=== PATIENT | female | born 1945 | race Caucasian/White ===

== ENCOUNTER 2018-10-08 08:33 | Inpatient (IN) | payer MEDICARE ==
[~2018-10-08 08:33] MED LIST: Buffered Lidocaine 1% SYRIN* 1 ML/SYRINGE INTRADERM ONE; Gabapentin CAP(*) 300 MG PO ONE; Lactated Ringers 1000 ML Bag* 1,000 ML IV SCH; Tranexamic Acid 1,000 MG in NS 0.9% 50 ML* (outpatient use) IV SCH
--- OUTSIDE RECORDS SUMMARY | 2018-10-08 08:37 | XMS REPORT | Continuity of Care Document ---
:1945 External Reference #:[id number] Author Name CONCHIS Pascual Address [address] [facility] [place] [address] Care Team Providers Name Role Phone Shola Manning MD Primary Care Physician Unavailable Payers Date Identification Numbers Payment Provider Subscriber Policy Number: [id number] Medicare Blue o [employer] Number: [id number] [address] PayID: [id number] G[place] [address] Expires: 2012 Policy Number: [id number] Medicare Blue o [employer] Number: [id number] [address] PayID: [id number] GREG [place] [address] Problems Active Problems Provider Date Localized, primary osteoarthritis of the Jonn Wilkins M.D. Onset: 2018 pelvic region and thigh Family History Date Family Member(s) Observation Comments General Heart Disease General Hypertension General Stroke General Cancer General Thyroid Disease Social History Type Date Description Comments Sex Unknown Lives With Spouse Occupation Retired ETOH Use Occasionally consumes alcohol Tobacco Use Start: Unknown Patient has never smoked Smoking Status Reviewed: 09/12/18 Patient has never smoked Exercise Type/Frequency Exercises sporadically Allergies, Adverse Reactions, Alerts Description No Known Drug Allergies Medications Active Medications SIG Qnty Indications Ordering Date Provider Lisinopril Zhou, 40mg Tablets JOLLY Chowdary Levothyroxine Sodium Take 1 Tablet Unknown 112mcg Tablets By Mouth Every Day On An Empty Stomach Hydrochlorothiazide Take 1 Tablet Unknown 25mg Tablets By Mouth Every Day Hydrocortisone Apply To Unknown 2.5% Ointment Affected Area(S) On Eyelids And Ears Once Daily For 1 Week In The Evening Amlodipine Besylate Take 2 Tablets Unknown 2.5mg Tablets By Mouth Every Day Famotidine Unknown 10mg Tablets Immunizations CPT Code Status Date Vaccine Lot # [id number] Given 03/05/2010 Influenza Virus 3Yrs & Over [id number] Vital Signs Date Vital Result Comment 09/12/2018 10:22am Height 65 inches 5'5" Weight 190.50 lb Heart Rate 76 /min BP Systolic 142 mmHg BP Diastolic 84 mmHg Respiratory Rate 84 /min Pain Level 2 BMI (Body Mass Index) 31.7 kg/m2 Results Test Date Facility Test Result H/L Range Note Urinalysis Profile 09/27/2018 [facility] Urine Color Straw [address] [place] [address] [phone] Urine Appearance Cloudy Urine Specific [place] 1.009 Low 1.010-1.030 Urine pH 5.0 N 5-9 Urine Urobilinogen Negative Negative Urine Ketones Negative Negative Urine Protein Negative Negative Urine Leukocytes 2+ Abnormal Negative Urine Blood Negative Negative Urine Nitrite Negative Negative Urine Bilirubin Negative Negative Urine Glucose Negative Negative Urine White Blood Cell Trace(0-5/hpf) Absent Urine Red Blood Cell 1+(3-5/hpf) Abnormal Absent Urine Bacteria Absent Absent Urine Squamous Epithelial Cell Present Abnormal Absent Inr/Protime 09/27/2018 [facility] Inr 0.89 N 0.82-1.09 [address] [place] [address] [phone] Laboratory test 09/27/2018 [facility] Partial 33.4 seconds N 26.0-38.[address] [place] [address] PTT [phone] CBC Auto Diff 09/27/2018 [facility] White Blood 6.6 10^3/uL N 3.5-10.[address] [place] [address] [phone] Red Blood Count 4.62 10^6/uL N 3.70-4.87 Hemoglobin 14.0 g/dL N 12.0-16.0 Hematocrit 41 % N 35-47 Mean Corpuscular Volume 90 fL N 80-97 Mean Corpuscular Hemoglobin 30 pg N 27-31 Mean Corpuscular HGB Conc 34 g/dL N 31-36 Red Cell Distribution Width 14 % N 10.5-15 Platelet Count 281 10^3/uL N 150-450 Mean Platelet Volume 8.3 fL N 7.4-10.4 Abs Neutrophils 3.7 10^3/uL N 1.5-7.7 Abs Lymphocytes 2.2 10^3/uL N 1.0-4.8 Abs Monocytes 0.5 10^3/uL N 0-0.8 Abs Eosinophils 0.2 10^3/uL N 0-0.6 Abs Basophils 0.0 10^3/uL N 0-0.2 Abs Nucleated RBC 0.0 10^3/uL Granulocyte % 56.4 % Lymphocyte % 33.7 % Monocyte % 6.8 % Eosinophil % 2.4 % Basophil % 0.7 % Nucleated Red Blood Cells % 0.0 Comp Metabolic Panel 09/27/2018 [facility] Sodium 136 mmol/L N 135-[address] [place] [address] [phone] Potassium 3.8 mmol/L N 3.5-5.0 Chloride 98 mmol/L Low 101-111 Co2 Carbon Dioxide 30 mmol/L N 22-32 Anion Gap 8 mmol/L N 2-11 Glucose 105 mg/dL High 70-100 Blood Urea Nitrogen 17 mg/dL N 6-24 Creatinine 0.74 mg/dL N 0.51-0.95 BUN/Creatinine Ratio 23.0 High 8-20 Calcium 9.9 mg/dL N 8.6-10.3 Total Protein 7.2 g/dL N 6.4-8.9 Albumin 4.5 g/dL N 3.2-5.2 Globulin 2.7 g/dL N 2-4 Albumin/Globulin Ratio 1.7 N 1-3 Total Bilirubin 0.50 mg/dL N 0.2-1.0 Alkaline Phosphatase 80 U/L N 34-104 Alt 13 U/L N 7-52 Ast 18 U/L N 13-39 Egfr Non- 76.5 >60 Egfr 92.6 >60 2 Type & Screen 09/27/2018 [facility] Patient Blood Type AB Positive [address] [place] [address] [phone] Antibody Screen NEGATIVE 1 Standard intensity warfarin therapeutic range: 2.0-3.0 High intensity warfarin therapeutic range: 2.5-3.5 2 Because ethnic data is not always readily available, this report includes an eGFR for both -Americans and non- Americans. The National Kidney Disease Education Program (NKDEP) does not endorse the use of the MDRD equation for patients that are not between the ages of 18 and 70, are , have extremes of body size, muscle mass, or nutritional status, or are non- or non-. According to the National Kidney Foundation, irrespective of diagnosis, the stage of the disease is based on the level of kidney function: Stage Description GFR(mL/min/1.73 m(2)) 1 Kidney damage with normal or decreased GFR 90 2 Kidney damage with mild decrease in GFR 60-89 3 Moderate decrease in GFR 30-59 4 Severe decrease in GFR 15-29 5 Kidney failure <15 (or dialysis) Procedures Date Code Description Status 03/06/2013 94378 Rad Exam; Hip Unilat Completed 03/06/2013 72983 Rad Exam; Pelvis Completed 03/29/2012 56677 Rad Exam; Hip Unilat Completed 03/29/2012 16497 Rad Exam; Pelvis Completed 02/27/2012 66859 THR Total Hip Replacement Completed 02/27/2012 29231 THR Total Hip Replacement Completed 01/26/2012 24068 Rad Exam; Hip Unilat Completed 01/26/2012 73166 Rad Exam; Pelvis Completed Encounters Type Date Location Provider Dx Diagnosis Office Visit 09/22/2017 [facility] Hayes Felder MD L23.9 Allergic contact 10:10a dermatitis, unspecified cause L82.0 Inflamed seborrheic keratosis L82.1 Other seborrheic keratosis Office Visit 09/15/2017 [facility] Hayes Felder L23.9 Allergic contact 11:00a dermatitis, unspecified cause Office Visit 03/06/2013 [facility] Kyle Alvarez 715.95 Osteoarthrosis 9:45a [facility]-C Localized Pelvic & Thigh Office Visit 09/12/2012 [facility] Kyle Alvarez 715.95 Osteoarthrosis 10:00a [facility] R[facility]-C Localized Pelvic & Thigh Office Visit 01/26/2012 [facility] Jonn 715.95 Osteoarthrosis 8:00a [facility] Unspec Genlpa[facility] Or Alb[place] Localized Pelvic & Thigh Plan of Treatment Future Appointment(s):10/08/2018 10:00 am - CONCHIS Valle at [facility]10/08/2018 10:00 am - Jonn Wilkins M.D. at [facility]11/07/2018 11:00 am - Jonn Wilkins M.D. at [facility]09/12/2018 - Jonn Wilkins M.D.M16.12 Unilateral primary osteoarthritis, left hipFollow up:4 weeks after surgery
--- OUTSIDE RECORDS SUMMARY | 2018-10-08 08:38 | XMS REPORT | Continuity of Care Document ---
:1945 External Reference #:[id number] Author Name Melvi Shaikh Care Team Providers Name Role Phone Shola Manning MD Primary Care Physician Unavailable Payers Date Identification Numbers Payment Provider Subscriber Policy Number: [id number] Medicare Blue o Jenae [employer] Number: [id number] [address] PayID: [id number] [place] [address] Expires: 2012 Policy Number: [id number] Medicare Blue Ppo Jenae [employer]he[employer] Number: [id number] [address] PayID: [id number] [place] [address] Problems Active Problems Provider Date Localized, primary [...] Medications SIG Qnty Indications Ordering Date Provider Lisinoprtammy Epperson, 40mg Tablets JOLLY Chowdary Levothyroxine Sodium Take [...] CPT Code Status Date Vaccine Lot # [id number] Given 03/05/2010 Influenza Virus 3Yrs & Over [id number] Vital Signs Date Vital Result Comment 09/12/2018 10:22am Height 65 inches 5'5" Weight 190.50 lb Heart Rate 76 /min BP Systolic 142 mmHg BP Diastolic 84 mmHg Respiratory Rate 84 /min Pain Level 2 BMI (Body Mass Index) 31.7 kg/m2 Procedures Date Code Description Status 03/06/2013 00397 Rad Exam; Hip Unilat Completed 03/06/2013 49732 Rad Exam; Pelvis Completed 03/29/2012 54648 Rad Exam; Hip Unilat Completed 03/29/2012 42152 Rad Exam; Pelvis Completed 02/27/2012 49943 THR Total Hip Replacement Completed 02/27/2012 77555 THR Total Hip Replacement Completed 01/26/2012 65179 Rad Exam; Hip Unilat Completed 01/26/2012 01022 Rad Exam; Pelvis Completed Encounters Type Date Location Provider Dx Diagnosis Office Visit 09/22/2017 [facility] Hayes Felder MD L23.9 Allergic contact 10:10a dermatitis, unspecified cause L82.0 Inflamed seborrheic keratosis L82.1 Other seborrheic keratosis Office Visit 09/15/2017 [facility] Hayes Felder L23.9 Allergic contact 11:00a dermatitis, unspecified cause Office Visit 03/06/2013 [facility] Kyle Neff.95 Osteoarthrosis 9:45a [facility] HOGANC Localized Pelvic & Thigh Office Visit 09/12/2012 [facility] Kyle Neff.95 Osteoarthrosis 10:00a [facility] WOLFF-Farrah Localized Pelvic & Thigh Office Visit 01/26/2012 Orthopedic Jonn Nur Osteoarthrosis 8:00a [facility] [place] Localized Pelvic & Thigh Plan of Treatment Future Appointment(s):11/07/2018 11:00 am - Jonn Wilkins M.D. at [facility]/12/2018 - Jonn Wilkins M.D.M16.12 Unilateral primary osteoarthritis, left hipFollow up:4 weeks after surgery
--- OUTSIDE RECORDS SUMMARY | 2018-10-08 08:38 | XMS REPORT | Continuity of Care Document ---
:1945 External Reference #:[id number] Author Name Heather Mcdowell PA-C Address [address] [place] [address] [place] [address] Care Team Providers Name Role Phone Shola Manning MD Care Team Information Auto Damage Appraiser Unavailable Shola Manning MD Primary Care Physician Unavailable Payers Date Identification Numbers Payment Provider Subscriber Policy Number: [id number] Medicare Blue Ppo Jenae Cleaning PayID: [id number] [place] [address] Expires: 2010 Policy Number: [id number] [facility] TAPAN Rawls [place] PayID: [id number] [address] [address] [place] [address] Advance Directives Description No Information Available Problems Active Problems Provider Date History of polyp of colon Heather Mcdowell PA-C Onset: 09/05/2018 Esophageal dysphagia Heather Mcdowell PA-C Onset: 09/05/2018 Gastroesophageal reflux disease Heather Mcdowell PA-C Onset: 09/05/2018 Essential hypertension Heather Mcdowell PA-C Onset: 09/12/2018 Family History Description No Information Available Social History Type Date Description Comments Sex Unknown Tobacco Use Start: Unknown Patient has never smoked Smoking Status Reviewed: 09/05/18 Patient has never smoked Allergies, Adverse Reactions, Alerts Description No Known Drug Allergies Medications Active Medications SIG Qnty Indications Ordering Date Provider Peg 3350/Electrolytes use as directed 4000ml Z86.010 Shola Bethea, 2018 240gm DO Solution Rec Lisinopril Epi Epperson, 40mg Tablets SPANISH INTERPRETER/TRANSLATOR Levothyroxine Sodium Take 1 Tablet Unknown 112mcg By Mouth Every Tablets Day On An Empty Stomach Hydrochlorothiazide Take 1 Tablet Unknown 25mg Tablets By Mouth Every Day Amlodipine Besylate Take 2 Tablets Unknown 2.5mg Tablets By Mouth Every Day Famotidine 1 by mouth Unknown 10mg Tablets every day Lutein Unknown 20mg Capsules Ibuprofen as needed Unknown 200mg Tablets Medications Administered in Office Medication SIG Qnty Indications Ordering Provider Date Influenza Unknown 03/06/2015 Injection Immunizations CPT Code Status Date Vaccine Lot # [id number] Given 03/17/2016 Influenza Virus Vaccine, Split Virus, Im U-Td Given 05/01/2015 Td(Adult),Unspecified 87415 Given 06/18/2010 Pneumovax 45170 Given 11/20/2006 Zoster Shingles Vaccine For Subcutaneous Injection 45051 Given 11/06/2006 Tetanus, Diphtheria Toxoids/Acellular Pertussis Vaccine 7 Or > Vital Signs Date Vital Result Comment 09/05/2018 12:54pm Height 65 inches 5'5" Weight 185.00 lb BP Systolic 159 mmHg BP Diastolic 82 mmHg Heart Rate 70 /min BMI (Body Mass Index) 30.8 kg/m2 Results Description No Information Available Procedures Date Code Description Status 02/07/2018 01066 Influenza Virus Vaccine, Quadrivalent (Cciiv4), Derived Completed From Cell 02/10/2017 10130 Influenza Virus Vaccine, Quadrivalent (Cciiv4), Derived Completed From Cell 12/25/2006 01205 Colonscopy+Biopsy Completed Encounters Description No Information Available Plan of Treatment Future Appointment(s):10/12/2018 12:30 pm - Shola [facility]hea DO at [facility]09/05/2018 - BHARGAVI Romeo-CK21.9 Gastro-esophageal reflux disease without hnwjkfbcvacV78.14 Dysphagia, pharyngoesophageal lzqlpU15.010 Personal history of colonic polypsNew Medication:Peg 3350/ Electrolytes 240 gm - use as directed
[2018-10-08] MEDS ORDERED: Gabapentin CAP(*) 100 MG ONE (08:59)
[2018-10-08] MEDS ORDERED: Buffered Lidocaine 1% SYRIN* 1 ML/SYRINGE INTRADERM ONE (09:00)
[2018-10-08] MEDS ORDERED: ceFAZolin 2 GM PREMIX in ORs 2 GM/50 ML BAG ONE (09:00)
[2018-10-08] MEDS ORDERED: fentaNYL* 50 MCG/ML 2 ML VIAL (100 MCG VIAL) ONE (09:27)
[2018-10-08] MEDS ORDERED: Midazolam* 1 MG/ML 2 ML VIAL (2 MG) ONE ×3 (09:27→10:55)
[2018-10-08] MEDS ORDERED: Ropivacaine (OR use only) 2 MG/ML 10 ML ONE (10:07)
[2018-10-08] MEDS ORDERED: ROPIVACAINE 5 MG/ML 30 ML BTL (0.5%) ONE (10:07)
[2018-10-08] MEDS ORDERED: Bupivacaine 0.5% SDV PF* 30ML VIAL ONE (10:32)
[2018-10-08] MEDS ORDERED: Dexamethasone IV* 4 MG/ML 1 ML (4 MG) ONE (11:01)
[2018-10-08] MEDS ORDERED: Propofol* 10 MG/ML 20 ML BTL ONE ×2 (11:01→12:19)
[2018-10-08] MEDS ORDERED: Acetaminophen IV 1GM/100ML * 100 ML ONE (11:02)
[2018-10-08] MEDS ORDERED: Lidocaine 2% PF * 5 ML VIAL ONE (11:02)
[2018-10-08] MEDS ORDERED: Ketorolac INJ* 30 MG/ML 1 ML VIAL ONE (11:15)
[2018-10-08] MEDS ORDERED: DiMENhydriNATE IV* 50 MG/ML VIAL ONE (11:15)
[2018-10-08] MEDS ORDERED: Ondansetron INJ* 2 MG/ML VIAL ONE (11:15)
[2018-10-08] MEDS ORDERED: Hetastarch 6% in NS* 500 ML IV ONE (11:42)
[2018-10-08] MEDS ORDERED: Phenylephrine 40 MCG/ML SYRINGE ONE (11:51)
[2018-10-08] MEDS ORDERED: fentaNYL* 50 MCG/ML 2 ML VIAL (100 MCG VIAL) IV PRN (12:09)
[2018-10-08] MEDS ORDERED: HYDROcodone/ACETAMIN 5-325 MG* 1 TAB PO PRN (12:09)
[2018-10-08] MEDS ORDERED: PROCHLORPERAZINE INJ 5 MG/ML 2 ML VIAL IV PRN (12:09)
[2018-10-08] MEDS ORDERED: Naloxone* 0.4 MG/ML 1 ML VIAL IV PRN (12:09)
[2018-10-08] MEDS ORDERED: diPHENhydraMINE IV* 50 MG/ML 1 ml VIAL (BENADRYL) IV PRN ×2 (12:09→13:02)
[2018-10-08] MEDS ORDERED: DiMENhydriNATE IV* 50 MG/ML VIAL IV PUSH PRN (12:09)
[2018-10-08] MEDS ORDERED: Ondansetron INJ* 2 MG/ML VIAL IV PRN ×2 (12:09→13:02)
[2018-10-08] MEDS ORDERED: Magnesium Hydroxide LIQ* 30 ML UDC PO PRN (13:02)
[2018-10-08] MEDS ORDERED: traMADol TAB* 50 MG PO PRN (13:02)
[2018-10-08] MEDS ORDERED: Cyclobenzaprine TAB* 10 MG PO PRN (13:02)
[2018-10-08] MEDS ORDERED: Bisacodyl SUPP* 10 MG SUPP PR PRN (13:02)
[2018-10-08] MEDS ORDERED: Polyethylene Glycol 3350* 17 GM PACKET PO PRN (13:02)
[2018-10-08] MEDS ORDERED: oxyCODONE TAB* 5 MG TAB PO PRN (13:02)
[2018-10-08] MEDS ORDERED: Morphine 4 MG/ML VIAL (1 ml) 4 MG/ML VIAL IV PRN (13:02)
[2018-10-08] MEDS ORDERED: diPHENhydraMINE PO* 25 MG PO PRN (13:02)
[2018-10-08] MEDS ORDERED: CONJUGATED ESTROGENS VAGINAL PRN (13:10)
[2018-10-08] MEDS ORDERED: Hydrocortisone 1% CREAM* 30 GM TUBE TOPICAL PRN (13:10)
--- NOTE | 2018-10-08 14:12 | OP ---
DATE OF OPERATION: 10/08/18 - ROOM #[id number] DATE OF : 41 SURGEON: Jonn Wilkins MD GRADUATE RECRUITER: Lucia Bernabe RPA ANESTHESIA: Regional/spinal/sedation. PRE-OP DIAGNOSIS: Left hip osteoarthritis. POST-OP DIAGNOSES: 1. Left hip osteoarthritis. 2. Abductor tear, left hip. OPERATIVE PROCEDURE: 1. Left total hip arthroplasty. 2. Abductor repair. ESTIMATED BLOOD LOSS: Less than 75 cc. COMPLICATIONS: None. HARDWARE: Lulú #11 M/L taper, 52 mm continuum cup, 10 degree elevated liner, +3.5 mm 36 mm head. SUMMARY: Mrs. Cleaning is a 73-year-old female who had undergone a right total hip arthroplasty in 2011. She had done well with this and had presented to the office last month complaining of left hip pain. She had very specific osteoarthritic changes and I discussed with her that a total hip arthroplasty should work well to decrease her pain and improve her function. Risks of surgery such as infection, scar formation, stiffness, DVT, pulmonary embolism, and hardware failure were some of the risks discussed. She had been declared medically optimized and wished to proceed. DESCRIPTION OF PROCEDURE: The patient was brought to the OR after a block had been placed in the holding area. Spinal anesthesia was then introduced. Cowan catheter was placed. She was then rolled into the right lateral decubitus position and an axillary roll was placed. She reported that she was quite comfortable. Left hip area was prepped and then draped. Incision was made, centered over the greater trochanter, was extended proximally and distally for about 6 cm. Incision was carried down through the skin and subcutaneous fat. Small bleeders encountered were ligated using electrocautery. Fascia was exposed and sharply incised. The bone of the greater trochanter was immediately evident. It could be seen how she had what was called a rotator cuff tear of the hip where the abductors were peeled away from the sides there. With internal rotation, the piriformis could easily be palpated and the piriformis, short external rotators, and capsule were taken down together from the posterior aspect of the greater trochanter. T-capsulotomy was made and hip was then easily dislocated. Cutting guide was placed and the femoral neck was marked and then the femoral head was resected. Big C retractor was placed anteriorly and broad Hohmann inferiorly and nice exposure of the acetabulum was obtained. Broad redundant labrum was present and this was sharply taken down using a Crowley blade. Beginning with 44 reamer, she was first deepened a little bit and then progressively expanded. At 50, I had a nice side to side fit, but I still had little bit of sclerotic bone and when I leaned into it with a 51, I ended up taking a little bit extra bone and medializing a little more than what I had done on the opposite side. A 52 mm cup was called for and impacted into place. Posteriorly, I only could place 2 cm screws but a good bite was obtained with both. Trial liner was placed and attention was returned to the proximal femur. Box osteotome was used to open the femoral canal and the canal finder was easily passed. Beginning with #4 broach, she was progressively broached to a #11, which is what she had on the opposite side. An 11 sat nicely and with a standard neck and a 0 head, she was easily located and I felt that she was just a little bit short. She was trialed with +3.5 and her leg length appeared perfect. She also had good stability as I could hyperflex her, but with the hip at 90 degrees and starting to internally rotate , she started to lever at 30 degrees and will be out at 45 degrees. Similarly in full adduction, she would lever out fairly quickly. This was not related to levering on the neck, as I could have my finger between the anterior acetabulum in the neck and I was not getting pinched. Elevated liner was called for in extension, she was nicely stable and not tight in extension. Trial instrumentation was removed and hip was copiously pulse lavaged. Elevated liner was impacted into place. An 11 M/L taper was impacted into place and she was again trialed with the +3.5 head. She had much better stability where she could be hyperflexed without any troubles, internally rotated, only started a lever at 60 degrees and full adduction would only start the lever at about 45 degrees but still was in at 60 degrees. +3.5 head was impacted into place and the hip was again relocated. Hip was copiously pulse lavaged. Piriformis capsule and short external rotators were repaired together to the posterior aspect of the greater trochanter. #4 broach was then used as a rasp to roughen up the greater trochanter to allow for a repair of her abductor mechanism. Beginning with the Ethibond sutures, she was brought together and a nice repair of the abductor mechanism was obtained. Fascia was repaired using interrupted # 1 Vicryl sutures. Hip was again pulse lavaged and subcutaneous tissues were reapproximated in 2 layers using 2-0 Vicryl sutures. Skin was closed using georgina. Sterile dressing and abduction pillow were applied in the OR. The patient was then rolled on to the hospital bed and was stable on transfer to the recovery room. [id number]/[facility] #: [id number] SID
[2018-10-08] MEDS: Lactated Ringers 1000 ML Bag* 1,000 ML IV SCH (15:54)
[2018-10-08] MEDS ORDERED: Conjugated Estrogens VAG CM* 42.5 gm TUBE VAGINAL PRN (16:44)
[2018-10-08] MEDS ORDERED: Warfarin TAB(*) 6 MG PO ONE (17:00)
[2018-10-08] MEDS ORDERED: Lisinopril TAB* 10 MG PO SCH (18:00)
[2018-10-08] MEDS: Acetaminophen TAB* 325 MG PO SCH (18:27)
[2018-10-08] MEDS: ceFAZolin 1 GM ADVAN(*) 1 GM in NS 0.9% 50 ML* 50 ML IVPB SCH (18:28)
[2018-10-08] MEDS: Magnesium Hydroxide LIQ* 30 ML UDC PO SCH (22:14)
[2018-10-08] MEDS: Docusate CAP* 100 MG PO SCH (22:14)
[2018-10-09] MEDS: Lactated Ringers 1000 ML Bag* 1,000 ML IV SCH (02:03)
[2018-10-09] MEDS: ceFAZolin 1 GM ADVAN(*) 1 GM in NS 0.9% 50 ML* 50 ML IVPB SCH ×2 (03:18→11:33)
[2018-10-09] MEDS: Acetaminophen TAB* 325 MG PO SCH ×3 (03:18→16:56)
[2018-10-09 05:00] LABS: Hematocrit 30 % (35-47); Hemoglobin 10.2 g/dL (12.0-16.0); Mean Platelet Volume 7.4 fL (7.4-10.4); Platelet Count 215 10^3/uL (150-450)
[2018-10-09 05:05] LABS: INR 1.15 (0.82-1.09)
[2018-10-09 05:15] LABS: BUN/Creatinine Ratio 19.7 (8-20); Calcium 8.2 mg/dL (8.6-10.3); EGFR African American 105.6 (>60); EGFR Non-African American 87.3 (>60); Potassium 3.4 mmol/L (3.5-5.0)
[2018-10-09] MEDS ORDERED: Levothyroxine TAB* 112 MCG TAB PO SCH (06:00)
--- NOTE | 2018-10-09 08:48 | PN ---
Progress Note - Progress Note Date of Service: 10/09/18 SOAP: Subjective: []Pt seen at bedside POD 1 sp left total hip arthroplasty. Denies CP, SOB, dizziness, nausea. Objective: []General: appears well, NAD LLE: Left hip dressing CDI, thigh soft, DF/PF intact, DP2+, sensation intact to light touch distally Calves supple and nontender without erythema, edema or palpable cords Assessment: []POD 1 sp LTH Plan: []WBAT Posterior hip precautions No active or resisted abduction heparin bridge to coumadin. coumadin 8 mg today low sodium and potassium - hold hctz and lisinopril today. resume normal diet, potassium 20 mg bid If goals met with PT and feeling well this afternoon possible DC today Vital Signs Temp 98.2 F 10/09/18 07:47 Pulse 67 10/09/18 07:47 Resp 12 10/09/18 07:47 BP 104/49 10/09/18 07:47 Pulse Ox 96 10/09/18 07:47 Intake & Output 10/08/18 10/09/18 10/09/18 18:59 06:59 18:59 Intake Total 1900 1580 Output Total 2250 1095 Balance -350 485 Weight 185 lb 9.6 oz Intake: IV Fluids 1600 1010 LR 1600 1010 Oral 300 570 Output: Cowan 2250 1095 Other: # Bowel Movements 0 Laboratory Last Values Hgb 10.2 g/dL (12.0-16.0) L 10/09/18 04:40 Hct 30 % (35-47) L 10/09/18 04:40 Plt Count 215 10^3/uL (150-450) 10/09/18 04:40 MPV 7.4 fL (7.4-10.4) 10/09/18 04:40 INR (Anticoag Therapy) 1.15 (0.82-1.09) H 10/09/18 04:40 Sodium 133 mmol/L (135-145) L 10/09/18 04:40 Potassium 3.4 mmol/L (3.5-5.0) L 10/09/18 04:40 Chloride 100 mmol/L (101-111) L 10/09/18 04:40 Carbon Dioxide 28 mmol/L (22-32) 10/09/18 04:40 Anion Gap 5 mmol/L (2-11) 10/09/18 04:40 BUN 13 mg/dL (6-24) 10/09/18 04:40 Creatinine 0.66 mg/dL (0.51-0.95) 10/09/18 04:40 Est GFR ( Amer) 105.6 (>60) 10/09/18 04:40 Est GFR (Non-Af Amer) 87.3 (>60) 10/09/18 04:40 BUN/Creatinine Ratio 19.7 (8-20) 10/09/18 04:40 Glucose 135 mg/dL (70-100) H 10/09/18 04:40 Calcium 8.2 mg/dL (8.6-10.3) L 10/09/18 04:40
--- NOTE | 2018-10-09 08:48 | PN ---
Subjective - Subjective Reason for Note: Consultation Note History: Internal medicine consultation: 1 day post left total hip arthroplasty Jenae Cleaning tolerated the procedure well and was able to walk yesterday. Her Cowan has been removed and she has yet to void. She has had no complications thus far. She denies fevers, chills. She has no chest pain, shortness of breath or palpitations. She has had no cough/sputum. Her appetite is good and she is passing flatus. Her pain control at rest is good. Active Problems: Active Problems History of total left hip arthroplasty (Acute) Z96.642 Hypokalemia (Acute) E87.6 Essential hypertension (Chronic) I10 GERD (gastroesophageal reflux disease) (Chronic) K21.9 History of esophageal stricture (Chronic) Z87.19 Obesity (BMI 30.0-34.9) (Chronic) E66.9 Primary hypothyroidism (Chronic) E03.9 Current Medications: Current Medications Acetaminophen (Tylenol Tab*) 975 mg PO Q8H [facility] Last Admin: 10/09/18 03:18 Dose: 975 mg Amlodipine Besylate (Norvasc Tab*) 5 mg PO QAM [facility] Bisacodyl (Dulcolax Supp*) 10 mg HI DAILY PRN PRN Reason: constipation Cholecalciferol (Vitamin D Tab*) 2,000 units PO QAM [facility] Cyclobenzaprine HCl (Flexeril Tab*) 10 mg PO TID PRN PRN Reason: SPASMS Diphenhydramine HCl (Benadryl Iv*) 25 mg IV Q6H PRN PRN Reason: itching Diphenhydramine HCl (Benadryl Po*) 25 mg PO Q6H PRN PRN Reason: INSOMNIA Docusate Sodium (Colace Cap*) 100 mg PO BID [facility] Last Admin: 10/08/18 22:14 Dose: Not Given Estrogens Conjugated (Premarin Vag Cream*) 1 applic VAGINAL ONCE PRN PRN Reason: IF NEEDED Stop: 10/09/18 13:09 Famotidine (Pepcid Tab*) 10 mg PO QAM [facility] Heparin Sodium (Porcine) (Heparin Vial(*)) 5,000 units SUBCUT Q8HR [facility] Hydrochlorothiazide (Hydrodiuril Tab*) 25 mg PO QAM [facility] Hydrocortisone (Hytone Cream 1%*) 1 applic TOPICAL ONCE PRN PRN Reason: PSORIASIS Cefazolin Sodium 1 gm/ Sodium (Chloride) 50 mls @ 200 mls/hr IVPB Q8H [facility] Stop: 10/09/18 11:14 Last Admin: 10/09/18 03:18 Dose: 200 mls/hr Lactated Ringer's (Lactated Ringers 1000 Ml Bag*) 1,000 mls @ 100 mls/hr IV PER RATE [facility] Last Admin: 10/09/18 02:03 Dose: 100 mls/hr Lactulose (Lactulose*) 30 ml PO Q6H PRN PRN Reason: constipation Levothyroxine Sodium (Synthroid Tab*) 112 mcg PO QAM@0600 [facility] Last Admin: 10/09/18 05:37 Dose: 112 mcg Lisinopril (Prinivil Tab*) 40 mg PO QPM [facility] Last Admin: 10/08/18 18:28 Dose: 40 mg Magnesium Hydroxide (Milk Of Magnesia Liq*) 30 ml PO BID [facility] Last Admin: 10/08/18 22:14 Dose: Not Given Magnesium Hydroxide (Milk Of Magnesia Liq*) 30 ml PO Q6H PRN PRN Reason: constipation Morphine Sulfate (Morphine 4 Mg/Ml Vial (1 Ml)) 2 mg IV Q2H PRN PRN Reason: PAIN Ondansetron HCl (Zofran Inj*) 4 mg IV Q6H PRN PRN Reason: nausea Oxycodone HCl (Roxycodone Tab*) 10 mg PO Q4H PRN PRN Reason: breakthru pain Polyethylene Glycol/Electrolytes (Miralax*) 17 gm PO DAILY PRN PRN Reason: Constipation Tramadol HCl (Ultram*) 50 mg PO Q6H PRN PRN Reason: PAIN Last Admin: 10/09/18 05:46 Dose: 50 mg Home Medications: Home Medications Medication Instructions Recorded Confirmed Type Cholecalciferol (Vitamin D3) 2,000 unit PO QAM 02/22/12 10/08/18 History [Vitamin D-3] Conjugated Estrogens VAG CM* 1 applic VAGINAL ONCE PRN 02/22/12 10/08/18 History [Premarin VAG CREAM*] Hydrochlorothiazide TAB* 25 mg PO QAM 02/22/12 10/08/18 History [Hydrodiuril TAB*] Ibuprofen TAB* [Advil TAB*] 1 - 2 tab PO BID 02/22/12 10/08/18 History Levothyroxine TAB* [Synthroid TAB*] 112 mcg PO QAM 02/22/12 10/08/18 History Lisinopril TAB* [Prinivil TAB*] 40 mg PO QPM 02/22/12 10/08/18 History [place]-3 Fatty Acids [[place]-3] 300 mg PO QAM 02/22/12 10/08/18 History Lutein 20 mg PO QAM 07/16/15 10/08/18 History Famotidine 10 mg PO QAM 09/27/18 10/08/18 History Glycerin/Propylene Glycol [Soothe 1 drop BOTH EYES TID PRN 09/27/18 10/08/18 History Lubricant Eye Drops] Hydrocortisone 2.5% CREAM(NF) 1 applic TOPICAL ONCE PRN 09/27/18 10/08/18 History amLODIPine TAB* [Norvasc 5 mg TAB*] 5 mg PO QAM 09/27/18 10/08/18 History Allergies: Allergies Allergy/AdvReac Type Severity Reaction Status Date / Time No Known Allergies Allergy Verified 10/08/18 09:10 Objective - Vital Signs Vital Signs: Vital Signs 10/08/18 10/08/18 10/08/18 09:10 10:08 10:11 Temperature 96.8 F Pulse Rate 68 68 68 Respiratory 16 Rate Blood Pressure 152/79 142/74 (mmHg) O2 Sat by Pulse 96 96 97 Oximetry 10/08/18 10/08/18 10/08/18 10:15 10:20 10:25 Temperature Pulse Rate 70 67 67 Respiratory Rate Blood Pressure 140/74 128/61 127/66 (mmHg) O2 Sat by Pulse 99 95 97 Oximetry 10/08/18 10/08/18 10/08/18 13:03 13:04 13:05 Temperature 96.8 F Pulse Rate 80 79 Respiratory Rate Blood Pressure 108/60 (mmHg) O2 Sat by Pulse 94 93 Oximetry 10/08/18 10/08/18 10/08/18 13:06 13:10 13:15 Temperature Pulse Rate 80 76 73 Respiratory 19 14 Rate Blood Pressure 109/65 110/58 113/62 (mmHg) O2 Sat by Pulse 93 94 94 Oximetry 10/08/18 10/08/18 10/08/18 13:20 13:25 13:30 Temperature Pulse Rate 73 71 74 Respiratory 16 12 15 Rate Blood Pressure 117/61 114/68 120/63 (mmHg) O2 Sat by Pulse 95 96 97 Oximetry 10/08/18 10/08/18 10/08/18 13:35 13:40 13:45 Temperature Pulse Rate 73 69 70 Respiratory 14 12 15 Rate Blood Pressure 118/61 119/63 124/65 (mmHg) O2 Sat by Pulse 96 97 95 Oximetry 10/08/18 10/08/18 10/08/18 13:50 13:55 14:00 Temperature Pulse Rate 72 72 68 Respiratory 13 16 13 Rate Blood Pressure 119/63 116/65 121/62 (mmHg) O2 Sat by Pulse 97 98 97 Oximetry 10/08/18 10/08/18 10/08/18 15:07 15:08 16:21 Temperature 97.7 F 97.5 F Pulse Rate 75 87 Respiratory 18 16 16 Rate Blood Pressure 136/54 122/55 (mmHg) O2 Sat by Pulse 100 94 Oximetry 10/08/18 10/08/18 10/08/18 17:00 19:02 21:19 Temperature 97.6 F 98.2 F Pulse Rate 85 96 89 Respiratory 18 18 16 Rate Blood Pressure 115/54 123/59 111/53 (mmHg) O2 Sat by Pulse 93 97 94 Oximetry 10/08/18 10/08/18 10/09/18 22:15 23:19 03:21 Temperature 98.2 F 97.9 F Pulse Rate 82 71 Respiratory 16 16 16 Rate Blood Pressure 114/60 121/59 (mmHg) O2 Sat by Pulse 94 94 Oximetry 10/09/18 10/09/18 05:46 07:47 Temperature 98.2 F Pulse Rate 67 Respiratory 16 12 Rate Blood Pressure 104/49 (mmHg) O2 Sat by Pulse 96 Oximetry - Intake and Output Intake and Output: Intake & Output 10/06/18 10/07/18 10/08/18 10/09/18 11:59 11:59 11:59 11:59 Intake Total 3480 Output Total 3345 Balance 135 Weight 185 lb 9.6 oz Intake: IV Fluids 2610 LR 2610 Oral 870 Output: Cow[place] 3345 Other: # Bowel Movements 0 ADLs: Meal Record Start: 10/08/18 15: 07 Freq: Status: Active Protocol: Created 10/08/18 15:07 [id number] (Rec: 10/08/18 15:07 [id number]) Document 10/08/18 18:33 [id number] (Rec: 10/08/18 18:33 [id number]) Intake and Output Start: 10/08/18 13: 02 Freq: 06,14,2200 Status: Complete Protocol: Created 10/08/18 13:10 [id number] (Rec: 10/08/18 13:10 BKG [id number]) Intake and Output Start: 10/08/18 15: 07 Freq: DAILY@0600,1400,2200 Status: Active Protocol: Created 10/08/18 15:07 [id number] (Rec: 10/08/18 15:07 [id number]) Document 10/08/18 17:13 [id number] (Rec: 10/08/18 17:14 [id number]) Document 10/08/18 21:29 [id number] (Rec: 10/08/18 21:30 [id number] [id number]) Document 10/08/18 22:14 [id number] (Rec: 10/08/18 22:16 [id number] [id number]) Document 10/09/18 05:17 [id number] (Rec: 10/09/18 05:18 [id number]) - Physical Exam General: No Cyanosis, No Anemia, No Jaundice, No Clubbing Lungs and Chest: Yes: Chest Expansion Full, Chest Expansion Symetrica, Percussion Note Resonant, Vessicular Breath Sounds. No: Crackles, Wheezes Heart Rate and Rhythm: Regular JVP: Not Elevated Additional Cardiovascular: Yes: Normal Heart Sounds. No: Heart Murmur, Pedal Edema Abdominal Exam: Yes: Soft, Bowel Sounds Present. No: Distention, Abdominal Tenderness Results - Results Lab Results: Laboratory Results - last 24 hr 10/09/18 10/09/18 10/09/18 04:40 04:40 04:40 Hgb 10.2 L Hct 30 L Plt Count 215 MPV 7.4 INR (Anticoag Therapy) 1.15 H Sodium 133 L Potassium 3.4 L Chloride 100 L Carbon Dioxide 28 Anion Gap 5 BUN 13 Creatinine 0.66 Est GFR ( Amer) 105.6 Est GFR (Non-Af Amer) 87.3 BUN/Creatinine Ratio 19.7 Glucose 135 H Calcium 8.2 L Assessment - Problem List Assessment: Patient Problems History of total left hip arthroplasty (Acute) Hypokalemia (Acute) Essential hypertension (Chronic) GERD (gastroesophageal reflux disease) (Chronic) History of esophageal stricture (Chronic) Obesity (BMI 30.0-34.9) (Chronic) Primary hypothyroidism (Chronic) Plan: History of total left hip arthroplasty (Acute) Day 1 post-operative. She wants to go home today. Before that she has to void urine, walk with walker, demonstrate she has adquate pain control, learn about anticoagulation - followed by Dr. Sanchez. From a medical point of view she is stable and ready for discharge. Hypokalemia (Acute) I will give her some KCL po Essential hypertension (Chronic) controlled - continue current Rx GERD (gastroesophageal reflux disease) (Chronic) no symptoms History of esophageal stricture (Chronic) no symptoms Obesity (BMI 30.0-34.9) (Chronic) Ongoing termite renewal inspector issue Primary hypothyroidism (Chronic) continue current Rx I explained the above to the patient. She is stoic and ready to go back home. She will follow up with me as needed. I have discharged her from the medical service.
[2018-10-09] MEDS ORDERED: Potassium Chlor TAB* 20 MEQ TAB.ER PO SCH (09:00)
[2018-10-09] MEDS ORDERED: amLODIPine TAB* 5 MG PO SCH (09:00)
[2018-10-09] MEDS ORDERED: Famotidine TAB* 20 MG PO SCH (09:00)
[2018-10-09] MEDS ORDERED: Cholecalciferol TAB* 1000 UNITS PO SCH (09:00)
[2018-10-09] MEDS ORDERED: Hydrochlorothiazide TAB* 25 MG PO SCH (09:00)
[2018-10-09] MEDS: Docusate CAP* 100 MG PO SCH (09:45)
[2018-10-09] MEDS: Heparin VIAL(*) 5000 UNITS/ML VIAL (FIVE THOUSAND) SUBCUT SCH ×2 (09:46→15:17)
[2018-10-09] MEDS: Magnesium Hydroxide LIQ* 30 ML UDC PO SCH (09:47)
--- NOTE | 2018-10-09 15:36 | DS ---
Orthopedic Discharge Summary - Discharge Summary Date of Admission:10/08/18 Date of Discharge: 10/09/18 Date of Surgery: 10/08/18 Attending Orthopedic Provider: Dr Wilkins Pre-operative Diagnosis: left hip osteoarthritis Operative Procedure: left total hip arthroplasty Disposition of Patient: home Condition of Patient: stable History: JOEY CORRAL is a 73 year old F with years of increasingly severe left hip pain. Patient has failed conservative management and has elected to undergo a left total hip replacement Hospital Course: JOEY was admitted to [facility] on 10/08/18. Patient underwent a left total hip replacement without complication followed by a brief recovery in PACU and transfer to the Short Stay Surgical Unit in stable condition. Dr Manning, physical therapy and occupational therapy also participated in this patients care. Post-op day 1: patient was alert and in no acute distress. Incision was clean, dry and intact. Operative extremity dorsiflexion and plantarflexion intact, sensation intact to light touch distally, DP2+. Physical therapy goals were met. Home Medications Medication Instructions Recorded Confirmed Type Cholecalciferol (Vitamin D3) 2,000 unit PO QAM 02/22/12 10/08/18 History [Vitamin D3] Conjugated Estrogens VAG CM* 1 applic VAGINAL ONCE PRN 02/22/12 10/08/18 History [Premarin VAG CREAM*] Hydrochlorothiazide TAB* 25 mg PO QAM 02/22/12 10/08/18 History [Hydrodiuril TAB*] Levothyroxine TAB* [Synthorid 112 112 mcg PO QAM 02/22/12 10/08/18 History MCG TAB*] Lisinopril TAB* [Prinivil TAB 10 40 mg PO QPM 02/22/12 10/08/18 History MG*] [place]-3 Fatty Acids [[place]-3] 300 mg PO QAM 02/22/12 10/08/18 History Lutein 20 mg PO QAM 07/16/15 10/08/18 History Famotidine 10 mg PO QAM 09/27/18 10/08/18 History Glycerin/Propylene Glycol [Soothe 1 drop BOTH EYES TID PRN 09/27/18 10/08/18 History Lubricant Eye Drops] Hydrocortisone 2.5% CREAM(NF) 1 applic TOPICAL ONCE PRN 09/27/18 10/08/18 History amLODIPine TAB* [Norvasc 5 mg TAB*] 5 mg PO QAM 09/27/18 10/08/18 History Acetaminophen TAB* [Tylenol TAB*] 975 mg PO Q8H tab 10/09/18 Rx Docusate CAP* [Colace Cap*] 100 mg PO BID PRN #90 cap 10/09/18 Rx Warfarin TAB(*) [Coumadin TAB(*)] 2 mg PO DAILY 30 Days #90 tab 10/09/18 Rx traMADol TAB* [Ultram*] 50 mg PO Q6H PRN #56 tab MDD 8 10/09/18 Rx Discharge Instructions following Orthopedic Surgery: Discharge Instructions following Orthopedic Surgery: Activity: * Weight Bearing as tolerated * Continue physical therapy and occupational therapy exercises as shown * outpatient physical therapy Hip replacements: Continue Hip Precautions- do not cross legs or bend greater than 90 degrees/squat Do not actively bring your operative leg out to the side ( abduction ) for 4 weeks Wound care: * OK to shower on post-op day 3, no bathing, swimming, or submerging wound. * Use gentle soap, pat dry. Cover with gauze, ISIS wrap or tape. Call Orthopedic office for: * Increased drainage * Redness * Increased pain * Fever Go to ER with shortness of breath or chest pain. Diet: * Regular diet * Increase fluids and fiber to prevent constipation. * Continue to use stool softeners, call office if no bowel motion within 48 hours. Medications See Home Medication List in your packet for medications that you should take after discharge. DVT Prophylaxis: Coumadin Dosing: medication increases bleeding tendency * Please note that you have been given 2 mg tablets. * Visiting home nurse to draw blood work for INR on Monday and . * You will be provided with dose instructions on Mondays and . * If you do not receive dosing instruction on dosing, please call our office right away. Please caden dosing instructions on your calendar as they are provided to you. * Dosin mg daily on 10/09 and 10/10, on 10/11 recheck INR blood draw for further dosing instructions. Call orthopedic office if you do not receive dosing instructions. Please also take 325 mg aspirin daily until INR is between 2-3. orthopedics will tell you when to stop -home nurse to recheck BMP within 2 days Pain Control: tramadol 50 mg 1-2 tabs every 6 hours as needed for pain, max 8 per day. hold for sedation Antibiotics are required prior to any dental work. FOLLOW UP: Follow up with Dr. Huddleston] Within 4 weeks, call for appointment Please call our office with any questions or concerns ([phone])
[2018-10-09 15:43] VITALS: BP 129/59
[2018-10-09] MEDS ORDERED: Warfarin TAB(*) 4 MG PO ONE (17:00)
== END 2018-10-09 17:15 | disposition home or self-care (01) | DRG 470 ==
LOC: AA 08:33 → SSU 13:02
PROVIDERS: ADMIT Orthopaedic Surgery; ATTEND Orthopaedic Surgery
PROC: 0KQP0ZZ Repair Left Hip Muscle, Open Approach (ICD-10-PCS; 2018-10-08)
PROC: 0SRB02A Replacement of Left Hip Joint with Metal on Polyethylene Synthetic Substitute, Uncemented, Open Approach (ICD-10-PCS; principal; 2018-10-08 10:15)
DX: M16.12 Unilateral primary osteoarthritis, left hip (principal); E87.1 Hypo-osmolality and hyponatremia; I10 Essential (primary) hypertension; M06.9 Rheumatoid arthritis, unspecified; K21.9 Gastro-esophageal reflux disease without esophagitis; Z96.641 Presence of right artificial hip joint; J30.2 Other seasonal allergic rhinitis; G89.29 Other chronic pain; R53.83 Other fatigue; R13.10 Dysphagia, unspecified; H91.93 Unspecified hearing loss, bilateral; E03.9 Hypothyroidism, unspecified; H25.9 Unspecified age-related cataract; E87.6 Hypokalemia; E66.9 Obesity, unspecified; M54.30 Sciatica, unspecified side; M54.5 Low back pain; S76.012A Strain of muscle, fascia and tendon of left hip, initial encounter; X58.XXXA Exposure to other specified factors, initial encounter; Y92.9 Unspecified place or not applicable; K22.2 Esophageal obstruction; Z85.51 Personal history of malignant neoplasm of bladder; Z90.49 Acquired absence of other specified parts of digestive tract; Z82.49 Family history of ischemic heart disease and other diseases of the circulatory system; Z72.89 Other problems related to lifestyle; Z86.010 Personal history of colon polyps; Z80.3 Family history of malignant neoplasm of breast; Z98.42 Cataract extraction status, left eye; Z68.30 Body mass index [BMI] 30.0-30.9, adult
CPT/HCPCS: 36415; 72170; 80048; 85014; 85018; 85049; 85610; A9270-GY; C1713; C1776; G8978-GP-CJ; G8979-GP-CI; G8987-GO-CI; G8988-GO-CI; G8989-GO-CI; J0690; J1100; J1240; J1644; J1885; J2250; J2405; J2704; J2795; J3010; J3490